=== PATIENT | female | born 1980 | race Hispanic/Latino ===

== ENCOUNTER 2024-05-02 20:33 | Emergency (ER) | payer SELFPAY ==
[~2024-05-02] VITALS: Ht 157.5 cm; Wt 71.2 kg
[2024-05-02 20:40] VITALS: BP 121/56; PULSE 84; RESP 12; O2SAT 98
[2024-05-02] MEDS: NEOMY SULF/BACITRA/POLYMYXIN B 1 EACH PACKET TP ONE (20:47)
== END 2024-05-02 21:32 | disposition home or self-care (01) ==
LOC: EDH 20:33
DX: S50.01XA Contusion of right elbow, initial encounter (principal); Z98.890 Other specified postprocedural states; W18.39XA Other fall on same level, initial encounter; Y93.89 Activity, other specified; Y92.89 Other specified places as the place of occurrence of the external cause; Y99.8 Other external cause status
CPT/HCPCS: 73060; 73080